=== PATIENT | male | born 1985 | race Caucasian/White ===

== ENCOUNTER 2018-01-19 09:20 | Emergency (ER) ==
[2018-01-19 09:24] VITALS: BP 138/87; TEMP 96.1; BMI 20.5
[2018-01-19] MEDS ORDERED: PHENERGAN 25 MG/ML VIAL 25 MG in SODIUM CHLORIDE 50 ML IV STA (09:26)
[2018-01-19] MEDS ORDERED: SODIUM CHLORIDE 1,000 ML IV STA ×2 (09:26→10:46)
[2018-01-19] MEDS ORDERED: DILAUDID 1 MG/ML SYRINGE IVP STA (09:26)
[2018-01-19] MEDS ORDERED: PHENERGAN 25 MG/ML VIAL ONE (09:35)
[2018-01-19] MEDS ORDERED: DILAUDID 1 MG/ML SYRINGE IVP PRN (09:59)
--- NOTE | 2018-01-19 10:26 | CT ---
EXAM: CT abdomen pelvis without contrast HISTORY: Vomiting and diarrhea with prior cholecystectomy COMPARISON: CT abdomen pelvis 06/17/2012 TECHNIQUE: Serial axial images of the abdomen pelvis were performed from the lung bases through the inferior pelvis without contrast. These were viewed in multiple planes. FINDINGS: There is a moderate left pneumothorax with left lower lobe consolidation. Limited evaluation of the upper abdomen was performed due to lack of contrast. The liver is unremark able. The gallbladder has been removed. The adrenal glands are normal. Right kidney demonstrates n o hydronephrosis, hydroureter or stone. The left kidney demonstrates a nonobstructing 0.4 cm renal s tone. The spleen is unremarkable. The pancreas is unremarkable. The stomach is normal. The small bowel in the abdomen pelvis demonstrates minimal scattered fluid wi th no dilated loops of bowel. The colon is unremarkable. Urinary bladder is partially distended. Th e prostate is unremarkable. There is no free air, free fluid or lymphadenopathy. There is minimal h azy ground-glass in the mid mesentery with nonenlarged lymph nodes. IMPRESSION: 1. Moderate left pneumothorax with adjacent left lower lobe consolidation. 2. Minimal hazy ground-glass in the mesentery may represent mild mesenteric adenitis. 3. Prior cholecystectomy. 4. Nonobstructing left renal stone. Critical findings called to Dr. Gilbert at 10:21 a.m. the same day as exam.
--- NOTE | 2018-01-19 10:33 | ED.PDOC ---
General ED Provider: Dr. ANA M ROMERO-ER Chief Complaint: Abdominal Pain Stated Complaint: jeff got food poisoning and jeff got vomiting and diarrhea that started this am Time Seen by Physician: 09:25 Mode of Arrival: Walk-In Information Source: Patient Exam Limitations: No limitations Nursing and Triage Documentation Reviewed and Agree: Yes Reviewed sepsis parameters & appropriate labs ordered?: Yes System Inflammatory Response Syndrome: Not Applicable Sepsis Protocol: For patient's 13 years and over: Temp is 96.8 and below OR 101 and greater Pulse >90 BPM Resp >20/minute Acutely Altered Mental Status Are patient's symptoms suggestive of a new infection, such as: -Pneumonia -Skin, Soft Tissue -Endocarditis -UTI -Bone, Joint Infection -Implantable Device -Acute Abdominal Infection -Wound Infection -Meningitis -Blood Stream Catheter Infection -Unknown GI Complaint Exam - Vomiting/Diarrhea Complaint/Exam Onset/Duration: this am Symptoms Are: Still present Initial Severity: Mild Current Severity: Moderate Character of Vomiting: Reports: Non-bilious Character of Diarrhea: Reports: Watery Aggravating: Reports: None Alleviating: Reports: None Associated Signs and Symptoms: Reports: Abdominal pain, Cramping Surgical Obstruction Risk Factors: Reports: None Kussmaul Respirations Present: No Differential Diagnoses: Dehydration Review of Systems - Review Of Systems Constitutional: Reports: No symptoms Eyes: Reports: No symptoms Ears, Nose, Mouth, Throat: Reports: No symptoms Respiratory: Reports: No symptoms Cardiac: Reports: No symptoms GI: Reports: Abdominal pain, Diarrhea, Nausea, Vomiting : Reports: No symptoms Musculoskeletal: Reports: No symptoms Skin: Reports: No symptoms Neurological: Reports: No symptoms Endocrine: Reports: No symptoms Hematologic/Lymphatic: Reports: No symptoms All Other Systems: Reviewed and Negative Past Medical History - Past Medical History Endocrine: Reports: Unknown Cardiovascular: Reports: Unknown Respiratory: Reports: Unknown Hematological: Reports: Unknown Gastrointestinal: Reports: Unknown Genitourinary: Reports: Unknown Neuro/Psych: Reports: Unknown Musculoskeletal: Reports: Unknown Cancer: Reports: Unknown - Surgical History General Surgical History: Reports: Unknown - Family History Family History: Reports: Unknown - Social History Smoking Status: Never smoker Hx Substance Use: No Alcohol Screening: None Physical Exam - Physical Exam Appearance: Well-appearing, No pain distress, Well-nourished Eyes: CHRISTOS, EOMI, Conjunctiva clear ENT: Ears normal, Nose normal, Oropharynx normal Neck: Supple Respiratory: Airway patent, Breath sounds clear, Breath sounds equal, Respirations nonlabored Cardiovascular: RRR, Pulses normal, No rub, No murmur GI/: Soft, Nontender, No masses, Bowel sounds normal, No Organomegaly Musculoskeletal: Normal strength, ROM intact, No edema, No calf tenderness Skin: Warm, Dry, Normal color Neurological: Sensation intact, Motor intact, Reflexes intact, Cranial nerves intact, Alert, Oriented Psychiatric: Affect appropriate, Mood appropriate, Anxious Interpretation - Radiology Interpretation Radiology Interpretation By: Radiologist Radiology Results: Positive Exam Interpreted: CT Scan - EKG Interpretation Time of EKG #1: 10:34 Rate: Normal Rhythm: Sinus Ectopy: None [place]: NL ST Segment: Normal Interpretation: nsr Physician Notification - Case Discussed Physician Notified: dr singh Time of Notification: 10:55 Critical Care Note - Critical Care Note Total Time (mins): 30 Course - Course Hematology/Chemistry: 01/19/18 09:47 01/19/18 09:47 Orders, Labs, Meds: Lab Review 01/19/18 01/19/18 09:47 09:47 WBC 22.16 H RBC 5.28 Hgb 16.8 Hct 46.9 MCV 88.8 MCH 31.8 H MCHC 35.8 H RDW Coeff of Adelfo 12.0 Plt Count 348 Immature Gran % (Auto) 0.4 Neut % (Auto) 85.3 Lymph % (Auto) 8.5 L [place] % (Auto) 4.6 Eos % (Auto) 0.9 Baso % (Auto) 0.3 Immature Gran # (Auto) 0.1 Neut # (Auto) 18.9 H Lymph # (Auto) 1.9 [place] # (Auto) 1.0 Eos # (Auto) 0.2 Baso # (Auto) 0.1 Sodium 138 Potassium 4.1 Chloride 107 Carbon Dioxide 15 L Anion Gap 20.1 BUN 16 Creatinine 0.80 Estimated GFR (MDRD) 112.00 BUN/Creatinine Ratio 20.00 Glucose 178 H Calcium 9.3 Total Bilirubin 0.4 AST 15 ALT 16 Alkaline Phosphatase 97 Total Creatine Kinase 68 Troponin I < 0.0100 Total Protein 8.6 H Albumin 4.7 Globulin 3.9 Albumin/Globulin Ratio 1.21 Amylase 50 Lipase 41 Orders Category Date Time Status EKG-(ED ONLY) Stat CARDIO 01/19/18 09:31 Completed IV [ED IV/MEDIPORT/POWERPORT] .ONCE EMERGENCY 01/19/18 09:26 Active OXYGEN [ED APPLY O2] .ONCE EMERGENCY 01/19/18 10:46 Active AMYLASE Stat LAB 01/19/18 09:47 Completed CBC W/ AUTO DIFF Stat LAB 01/19/18 09:47 Completed COMPREHENSIVE METABOLIC PANEL Stat LAB 01/19/18 09:47 Completed CREATINE KINASE Stat LAB 01/19/18 09:47 Completed LIPASE Stat LAB 01/19/18 09:47 Completed STOOL CULTURE Stat LAB 01/19/18 Ordered TROPONIN I Stat LAB 01/19/18 09:47 Completed URINALYSIS C & S IF INDICATED Stat LAB 01/19/18 09:25 Uncollected 0.9 % Sodium Chloride [Saline Flush] MEDS 01/19/18 09:26 Active 1 syr IVF PRN PRN Hydromorphone HCl [Dilaudid 1 mg/ml Syringe] MEDS 01/19/18 09:26 Discontinued 1 mg IVP ONCE STA Hydromorphone HCl [Dilaudid 1 mg/ml Syringe] MEDS 01/19/18 09:59 Active 1 mg IVP PRN PRN Promethazine HCl [Phenergan 25 mg/ml Vial] MEDS 01/19/18 09:35 Discontinued 25 mg .ROUTE .STK-MED ONE Promethazine HCl [Phenergan 25 mg/ml Vial] 25 mg MEDS 01/19/18 09:26 Discontinued 0.9 % Sodium Chloride [Sodium Chloride] 50 ml IV ONCE Sodium Chloride 0.9% [Sodium Chloride] 1,000 ml MEDS 01/19/18 10:46 Active IV 125 mls/hr Sodium Chloride 0.9% [Sodium Chloride] 1,000 ml MEDS 01/19/18 09:[address] ABDOMEN/PELVIS WO CONTRAST Stat RADS 01/19/18 09:25 Completed CXR [CHEST, 1V AP ONLY] Stat RADS 01/19/18 10:22 Completed Medications Generic Name Dose Route Start Last Admin Trade Name Freq PRN Reason Stop Dose Admin Hydromorphone HCl 1 mg 01/19/18 09:59 01/19/18 10:05 Dilaudid 1 Mg/Ml Syringe IVP 1 mg PRN PRN Administration Abdominal Pain Sodium Chloride 1,000 mls @ 125 mls/hr 01/19/18 10:46 01/19/18 10:51 Sodium Chloride IV 01/19/18 18:45 125 mls/hr .Q8H STA Administration Sodium Chloride 1 syr 01/19/18 09:26 01/19/18 09:48 Saline Flush IVF 1 syr PRN PRN Administration To flush IV Discontinued Medications Generic Name Dose Route Start Last Admin Trade Name Freq PRN Reason Stop Dose Admin Hydromorphone HCl 1 mg 01/19/18 09:26 01/19/18 09:46 Dilaudid 1 Mg/Ml Syringe IVP 01/19/18 09:27 1 mg ONCE STA Administration Promethazine HCl 25 mg/ Sodium 51 mls @ 75 mls/hr 01/19/18 09:26 01/19/18 09: 48 Chloride IV 01/19/18 10:06 75 mls/hr ONCE STA Administration Sodium Chloride 1,000 mls @ 1,000 mls/hr 01/19/18 09:26 01/19/18 09:49 Sodium Chloride IV 01/19/18 10:25 1,000 mls/hr BOLUS STA Administration Vital Signs: Temp Pulse Resp BP Pulse Ox 01/19/18 09:20 96.1 F L 85 20 138/87 99 Departure - Departure Time of Disposition: 10:55 Disposition: TSF SHORT-TRM HOSP Discharge Problem: Gastroenteritis Pneumothorax Qualifiers: Pneumothorax type: unspecified pneumothorax Qualified Code(s): J93.9 - Pneumothorax, unspecified Instructions: Spontaneous Pneumothorax (ED) Condition: Good Pt referred to PMD for follow-up: Yes IPMP verified?: No Allergies/Adverse Reactions: Allergies codeine Adverse Reaction (Verified 01/19/18 09:25) Home Medications: Ambulatory Orders 1 [No Reported Medications] 01/19/18 Transfer Form Completed: Yes Disposition Discussed With: Patient
--- NOTE | 2018-01-19 10:41 | DI ---
Exam: Single view chest x-ray. Date: 01/19/2018. Comparison: CT scan performed 01/19/2018. HISTORY: Evaluate pneumothorax identified on the CT scan. FINDINGS: The osseous structures are normal. There is 5.7 cm of left apical pleural separation with associated atelectasis in the left lung base. The right lung is clear. The cardiac silhouette and pulmonary vasculature are normal. Impression: There is 5.7 cm of left apical pleural separation, as first visualized on the CT scan. There is minimal left basilar atelectasis.
== END 2018-01-19 11:27 | disposition short-term general hospital (02) ==
LOC: ED 09:20
DX: K52.9 Noninfective gastroenteritis and colitis, unspecified (principal); J93.9 Pneumothorax, unspecified
CPT/HCPCS: 36415; 80053; 82150; 82550; 83690; 84484; 85025; 87015; 87045; 87899; 93005; 93010; 96361; 96365; 96375; 99285

== ENCOUNTER 2018-01-19 11:30 | Outpatient (CLI) ==
[2018-01-19 09:24] VITALS: BMI 20.5
== END 2018-01-19 11:31 | disposition short-term general hospital (02) ==
LOC: AMBL 11:30
PROVIDERS: ATTEND Family Medicine
DX: R11.2 Nausea with vomiting, unspecified (principal); R06.02 Shortness of breath; J98.19 Other pulmonary collapse